=== PATIENT | female | born 1945 | race Caucasian/White ===

== ENCOUNTER → 2019-01-25 | Outpatient (CLI) | payer MEDICARE ==
[~2019-01-25] MED LIST: ALE10 PO; ALPR-429 PO; ASPI-1441 PO; ATOR20TA65 PO; CALC1TAB32 PO; CHOL10005 PO; EZET10TA41 PO; MULT-1124 PO; MULT-885 PO
[2019-01-25 09:43] LABS: PLATELET COUNT, AUTOMATED 213 K/uL (150-450)
[2019-01-25 10:34] LABS: LDL CHOLESTEROL 128 mg/dl
== END ==
LOC: LAB 09:27
PROVIDERS: ATTEND Emergency Medicine
DX: R03.0 Elevated blood-pressure reading, without diagnosis of hypertension (principal); M81.0 Age-related osteoporosis without current pathological fracture; G62.9 Polyneuropathy, unspecified
CPT/HCPCS: 36415; 82040; 82247; 82306; 82310; 82374; 82435; 82465; 82565; 82607; 82947; 83718; 84075; 84132; 84155; 84295; 84443; 84450; 84460; 84478; 84520; 85025

== ENCOUNTER → 2019-03-08 | Outpatient (CLI) | payer MEDICARE ==
--- NOTE | 2019-03-08 08:52 | RADIOLOGY IMAGING REPORT ---
FACILITY: [facility] PATIENT NAME: Kris Ovalles : 1945 MR: [id number] V: [id number] EXAM DATE: ORDERING PHYSICIAN: JUSTO KURTZ TECHNOLOGIST: Location: [facility] Patient: Kris Ovalles : 1945 Visit/Account:[id number] Date of Sevice: 03/08/2019 BONE DENSITY DEXA Scan Clinical history: Osteopenia. Comparison: DEXA scan from 05/28/2013. LUMBAR SPINE: The bone mineral density (BMD) measured from L1-L4 correlates with a Z-score 0.4 and a T-score of -1 .5 which is osteopenia as defined by the World Health Organization. The corresponding risk of fractu re in the lumbar spine is increased 3 times compared with a young adult reference population. This v alue has decreased by -6.2 % since the prior study. More than 5% change is considered significant. HIP: Bone mineral density (BMD) measured in the Left total hip region correlates with a Z-score 0.6 and a T-score of -1.1 which is osteopenia as defined by the World Health Organization. The corresponding r isk of fracture in the hip is increased 2 times compared with a young adult reference population. Thi s value has decreased by -7.3 % since the prior study. More than 5% change is considered significant . Bone mineral density (BMD) measured in the Femoral Neck region measures 0.794 g/cm2. T score -1.8. Osteopenia. Fracture is increased between 3-4 times IMPRESSION: 1. Lumbar spine: Normal. Osteopenia There has been decrease of -6.2% in the bone mineral density si nce the previous exam. 2. Left Total Hip: Osteopenia. There has been decrease by -7.3% in the bone mineral density since t he previous exam. 3. Femoral Neck: Bone Mineral Density is 0.794 g/cm2 . Osteopenia. The next DEXA scan of this patient should include the following sites: L1-L4 and the left hip. FRAX? WHO Fracture Risk Assessment Tool link: <http://www.shef.ac.uk/FRAX/tool.jsp?locationValue=9> PLEASE NOTE: 1) The World Health Organization defines low BMD as follows: T-score Normal > -1 Osteopenia < -1 and > -2.5 Osteoporosis < -2.5 without fractures Established osteoporosis < -2.5 with fractures 2) In general, you may wish to consider: Diagnosis Treatment Follow-up DEXA Normal BMD Prevention 2-3 years Osteopenia Prevention/therapy 1-2 years Osteoporosis Therapy Yearly 3) Fracture risk estimated from the T-score is more accurate for vertebral fractures (often spontane ous) than for hip fractures. Report Dictated By: Andrew Pringle MD at 03/08/2019 8:43 AM Report E-Signed By: Andrew Pringle MD at 03/08/2019 8:46 AM WSN:[email or web address]
--- NOTE | 2019-03-08 16:55 | RADIOLOGY IMAGING REPORT ---
FACILITY: [facility] PATIENT NAME: WOOD FRAUSTO : [id number] MR: [id number] V: [id number] EXAM DATE: [id number] ORDERING PHYSICIAN: JUSTO KURTZ TECHNOLOGIST: Kaley Soto PROCEDURE: BILATERAL DIGITAL SCREENING MAMMOGRAM WITH CAD ASSISTED INTERPRETATION & 3D TOMOSYNTHESIS REASON FOR STUDY: Screening. FAMILY HISTORY OF BREAST CANCER: None. BREAST PROCEDURES/TREATMENTS: None. COMPARISON: From 06/23/2016 back to 05/28/2013. VIEWS OBTAINED: 2D & 3D full field CC & MLO. BREAST DENSITY: Scattered areas of fibroglandular density. MAMMOGRAM FINDINGS: There are no mass lesions, architectural distortions, or clustering of suspicious microcalcifications. No interval change when compared to the previous study. IMPRESSION: BIRADS 1: Negative. DIAGNOSTIC CATEGORY 1--NEGATIVE. RECOMMENDATIONS: ROUTINE MAMMOGRAM AND CLINICAL EVALUATION. Dictated by: Antony Pringle M.D. on 03/08/2019 at 8:39 Transcribed by: EDGAR on 03/08/2019 at 8:45 Approved by: Antony Pringle M.D. on 03/08/2019 at 16:53 [facility]
== END ==
LOC: MAMO 00:41
PROVIDERS: ATTEND Emergency Medicine
DX: Z13.820 Encounter for screening for osteoporosis (principal); Z12.31 Encounter for screening mammogram for malignant neoplasm of breast; M85.89 Other specified disorders of bone density and structure, multiple sites
CPT/HCPCS: 77063; 77067; 77080

== ENCOUNTER → 2019-04-23 | Outpatient (CLI) | payer MEDICARE | LOC: LAB 09:29 | PROVIDERS: ATTEND Emergency Medicine | DX: E78.00 Pure hypercholesterolemia, unspecified (principal); E55.9 Vitamin D deficiency, unspecified | CPT/HCPCS: 36415; 82306; 82465; 83718; 84478 ==

== ENCOUNTER 2019-05-04 01:42 | Day surgery (SDC) | payer MEDICARE ==
[~2019-05-04] VITALS: Ht 154.9 cm; Wt 56.2 kg
[2019-05-04] MEDS: LIDOCAINE/SOD BICARB 8.4% SYR ID ONE (08:52)
[2019-05-04] MEDS: NORMOSOL R SOLN(*) 1000 ML BAG 1,000 ML IV PRN (08:52)
[2019-05-04 09:00] VITALS: BP 138/90
[2019-05-04 10:45] VITALS: BP 98/74
--- NOTE | 2019-05-04 10:59 | Short(Outpt) Discharge Summary ---
Discharge Summary Reason for Hosp/Final Diag: (1) Encounter for screening colonoscopy Hospital Course & Plan: pt presented for colonoscopy. she tolerated the procedure well and will be discharged home when criteria met. Departure Discharge to: Home Discharge Instructions Home Meds Active Scripts Atorvastatin Calcium (ATORVASTATIN CALCIUM) 20 Mg Tablet, 1 TAB PO QDAY, #90 TAB 3 Refills Prov:JUSTO KURTZ MD 04/27/19 Reported Medications Cholecalciferol (Vitamin D3) (VITAMIN D3) 1,000 Unit Tablet, 2000 UNIT PO DAILY, TAB 01/25/19 Diet: Regular Activity: As Tolerated Special Instructions: repeat colonoscopy in 10 yrs. LINH PABON May 04, 2019 10:59
[2019-05-04 11:00] VITALS: BP 92/71
[2019-05-04 11:15] VITALS: BP 94/78
[2019-05-04 11:24] VITALS: BP 126/88
[2019-05-04 11:26] VITALS: BP 120/86
== END 2019-05-04 11:45 | disposition home or self-care (01) ==
LOC: OR 01:42
PROVIDERS: ATTEND Surgery
DX: Z12.11 Encounter for screening for malignant neoplasm of colon (principal); K57.30 Diverticulosis of large intestine without perforation or abscess without bleeding; I10 Essential (primary) hypertension